=== PATIENT | male | born 1970 | race African-American/Black ===

== ENCOUNTER 2017-08-22 15:55 | Emergency (ER) | payer SELFPAY ==
[~2017-08-22] VITALS: Ht 172.7 cm; Wt 60.4 kg
[2017-08-22 16:05] VITALS: Ht 172.7 cm; Wt 60.4 kg
[2017-08-22 16:53] LABS: BASOPHIL % 0.3 % (0-2); PLATELET COUNT 223 x10^3mcL (130-400); RED CELL DISTRIBUTION WIDTH 13.4 % (11.5-14.5)
[2017-08-22 16:59] LABS: CALCIUM 8.7 mg/dL (8.5-10.1); CARBON DIOXIDE 25.4 mmol/L (21-32); CHLORIDE SERUM 104 mmol/L (98-107); CREATININE SERUM 0.9 mg/dL (0.7-1.3); GFR1 > 60 mL/min; GLUCOSE SERUM 94 mg/dL (74-106); POTASSIUM SERUM 4.4 mmol/L (3.5-5.1); SODIUM SERUM 138 mmol/L (136-145)
[2017-08-22 17:05] LABS: ALBUMIN 3.9 g/dL (3.4-5.0); ALKALINE PHOSPHATASE 52 U/L (46-116); ALT/SGPT 20 U/L (16-63); AMYLASE 104 U/L (25-115); AST/SGOT 18 U/L (15-37); BILIRUBIN TOTAL 0.69 mg/dL (0.20-1.00); LIPASE 195 IU/L (73-393)
[2017-08-22 18:19] VITALS: BP 120/87
== END 2017-08-22 18:19 | disposition home or self-care (01) ==
LOC: ED 15:55
PROVIDERS: Emergency Medicine
DX: R10.13 Epigastric pain (principal)
CPT/HCPCS: 83880; J1885

== ENCOUNTER 2017-10-08 16:37 | Inpatient (IN) | payer MEDICAID ==
[~2017-10-08] VITALS: Ht 172.7 cm; Wt 64.1 kg
[2017-10-08 17:00] VITALS: Ht 172.7 cm; Wt 64.1 kg
[2017-10-08 18:46] LABS: CALCIUM 8.6 mg/dL (8.5-10.1); CARBON DIOXIDE 29.5 mmol/L (21-32); CHLORIDE SERUM 102 mmol/L (98-107); GFR1 > 60 mL/min; GLUCOSE SERUM 73 mg/dL (74-106); POTASSIUM SERUM 4.1 mmol/L (3.5-5.1); SODIUM SERUM 135 mmol/L (136-145)
[2017-10-08 18:52] LABS: ALBUMIN 3.8 g/dL (3.4-5.0); ALKALINE PHOSPHATASE 51 U/L (46-116); ALT/SGPT 16 U/L (16-63); AST/SGOT 18 U/L (15-37); TOTAL PROTEIN, SERUM 6.9 g/dL (6.4-8.2)
[2017-10-08 18:57] LABS: BASOPHIL % 1.8 % (0-2); PLATELET COUNT 208 x10^3mcL (130-400); RED CELL DISTRIBUTION WIDTH 13.3 % (11.5-14.5)
[2017-10-08 18:57] LABS: AMYLASE 533 U/L (25-115); LIPASE 3847 IU/L (73-393)
[2017-10-08 20:11] LABS: PHOSPHOROUS 3.5 mg/dL (2.5-4.9)
[2017-10-08 20:12] LABS: CHOLESTEROL/HDL RATIO 2.4
[2017-10-08 20:14] LABS: T3 TOTAL 0.43 ng/mL
[2017-10-08 20:37] LABS: FREE T4 0.57 ng/dL (0.76-1.46)
[2017-10-08 20:38] LABS: FREE THYROXINE INDEX 0.8 ug/dL (1.4-4.5); T4(THYROXINE) 1.8 ug/dL (4.7-13.3)
[2017-10-08 21:11] VITALS: BP 143/90
[2017-10-09 05:41] VITALS: BP 109/72
[2017-10-09 06:25] LABS: BASOPHIL % 0.4 % (0-2); PLATELET COUNT 175 x10^3mcL (130-400); RED CELL DISTRIBUTION WIDTH 13.2 % (11.5-14.5)
[2017-10-09 06:46] LABS: CARBON DIOXIDE 28.6 mmol/L (21-32); CHLORIDE SERUM 109 mmol/L (98-107); GFR1 > 60 mL/min; GLUCOSE SERUM 73 mg/dL (74-106); MAGNESIUM 2.1 mg/dL (1.8-2.4); PHOSPHOROUS 2.8 mg/dL (2.5-4.9); POTASSIUM SERUM 4.2 mmol/L (3.5-5.1); SODIUM SERUM 140 mmol/L (136-145)
[2017-10-09 09:23] VITALS: BP 100/57
[2017-10-09 09:23] LABS: UA SPECIFIC GRAVITY <=1.005 (1.005-1.035); microscopic required? YES; urine erythrocyte NEGATIVE (NEGATIVE)
[2017-10-09 09:50] LABS: AMPHETAMINE QUAL UR NONE DETECTED (See below)
[2017-10-09 13:38] VITALS: BP 122/82
[2017-10-09 16:05] VITALS: BP 122/82
== END 2017-10-09 16:23 | disposition home or self-care (01) | DRG 282 ==
LOC: ED 16:37 → DU 19:54
PROVIDERS: Emergency Medicine; Family Medicine
DX: K85.20 Alcohol induced acute pancreatitis without necrosis or infection (principal); E02 Subclinical iodine-deficiency hypothyroidism; Z68.1 Body mass index [BMI] 19.9 or less, adult; F17.210 Nicotine dependence, cigarettes, uncomplicated; F12.10 Cannabis abuse, uncomplicated; F19.10 Other psychoactive substance abuse, uncomplicated
CPT/HCPCS: 83880; 84439; G0480; J1885; J7030; Q0092

== ENCOUNTER 2018-04-05 12:55 | Emergency (ER) | payer OTHER ==
[~2018-04-05] VITALS: Ht 172.7 cm; Wt 56.2 kg
[2018-04-05 13:13] VITALS: Ht 172.7 cm; Wt 56.2 kg
[2018-04-05 15:03] LABS: BASOPHIL % 0.8 % (0-2); PLATELET COUNT 190 x10^3mcL (130-400); RED CELL DISTRIBUTION WIDTH 12.7 % (11.5-14.5)
[2018-04-05 15:13] LABS: CALCIUM 9.2 mg/dL (8.5-10.1); CARBON DIOXIDE 27.6 mmol/L (21-32); CHLORIDE SERUM 102 mmol/L (98-107); GFR1 > 60 mL/min; GLUCOSE SERUM 94 mg/dL (74-106); POTASSIUM SERUM 4.4 mmol/L (3.5-5.1); SODIUM SERUM 137 mmol/L (136-145)
[2018-04-05 15:19] LABS: ALBUMIN 4.1 g/dL (3.4-5.0); ALKALINE PHOSPHATASE 51 U/L (46-116); ALT/SGPT 22 U/L (16-63); AST/SGOT 21 U/L (15-37); BILIRUBIN TOTAL 0.8 mg/dL (0.20-1.00); TOTAL PROTEIN, SERUM 7.7 g/dL (6.4-8.2)
[2018-04-05 15:25] LABS: UA SPECIFIC GRAVITY 1.025 (1.005-1.035); microscopic required? YES; urine erythrocyte TRACE (NEGATIVE)
[2018-04-05 15:43] LABS: LIPASE 7048 IU/L (73-393)
[2018-04-05 17:00] VITALS: BP 145/93
== END 2018-04-05 17:00 | disposition home or self-care (01) ==
LOC: ED 12:55
PROVIDERS: Emergency Medicine
DX: K85.20 Alcohol induced acute pancreatitis without necrosis or infection (principal); F17.200 Nicotine dependence, unspecified, uncomplicated
CPT/HCPCS: 99406; J2270; J2405; J3490; J7030

== ENCOUNTER 2019-05-16 20:03 | Emergency (ER) | payer OTHER ==
[~2019-05-16] VITALS: Ht 172.7 cm; Wt 56.7 kg
[2019-05-16 20:33] VITALS: Ht 172.7 cm; Wt 56.7 kg
[2019-05-16 21:32] LABS: PLATELET COUNT 254 x10^3mcL (130-400); RED CELL DISTRIBUTION WIDTH 13.2 % (11.5-14.5)
[2019-05-16 21:39] LABS: CALCIUM 9.1 mg/dL (8.5-10.1); CARBON DIOXIDE 29.9 mmol/L (21-32); CHLORIDE SERUM 100 mmol/L (98-107); CREATININE SERUM 1.1 mg/dL (0.7-1.3); GFR1 > 60 mL/min; GLUCOSE SERUM 104 mg/dL (74-106); POTASSIUM SERUM 4.1 mmol/L (3.5-5.1); SODIUM SERUM 136 mmol/L (136-145)
[2019-05-16 21:44] LABS: ALBUMIN 4.5 g/dL (3.4-5.0); ALKALINE PHOSPHATASE 59 U/L (46-116); ALT/SGPT 20 U/L (16-63); AST/SGOT 16 U/L (15-37); BILIRUBIN TOTAL 0.7 mg/dL (0.20-1.00); LIPASE 581 IU/L (73-393); TOTAL PROTEIN, SERUM 8.1 g/dL (6.4-8.2)
[2019-05-16 23:08] VITALS: BP 113/83
== END 2019-05-16 23:25 | disposition home or self-care (01) ==
LOC: ED 20:03
PROVIDERS: Emergency Medicine
DX: K85.20 Alcohol induced acute pancreatitis without necrosis or infection (principal)
CPT/HCPCS: 36415; Q0162

== ENCOUNTER 2019-05-30 12:51 | Emergency (ER) | payer OTHER ==
[~2019-05-30] VITALS: Ht 172.7 cm; Wt 54.0 kg
[2019-05-30 13:23] VITALS: Ht 172.7 cm; Wt 54.0 kg
[2019-05-30 14:28] LABS: BASOPHIL % 3.8 % (0-2); PLATELET COUNT 292 x10^3mcL (130-400); RED CELL DISTRIBUTION WIDTH 12.9 % (11.5-14.5)
[2019-05-30 14:40] LABS: CALCIUM 9.5 mg/dL (8.5-10.1); CARBON DIOXIDE 29.3 mmol/L (21-32); CHLORIDE SERUM 99 mmol/L (98-107); CREATININE SERUM 1.1 mg/dL (0.7-1.3); GFR1 > 60 mL/min; GLUCOSE SERUM 107 mg/dL (74-106); POTASSIUM SERUM 4.7 mmol/L (3.5-5.1); SODIUM SERUM 135 mmol/L (136-145)
[2019-05-30 14:44] LABS: ALKALINE PHOSPHATASE 55 U/L (46-116); ALT/SGPT 20 U/L (16-63); AST/SGOT 14 U/L (15-37); BILIRUBIN TOTAL 0.46 mg/dL (0.20-1.00); LIPASE 186 IU/L (73-393); TOTAL PROTEIN, SERUM 7.9 g/dL (6.4-8.2)
[2019-05-30 17:18] VITALS: BP 125/76
== END 2019-05-30 17:18 | disposition home or self-care (01) ==
LOC: ED 12:51
PROVIDERS: Emergency Medicine
DX: G89.29 Other chronic pain (principal); R10.9 Unspecified abdominal pain; F17.210 Nicotine dependence, cigarettes, uncomplicated; Z71.6 Tobacco abuse counseling
CPT/HCPCS: 36415; 99406